=== PATIENT | male | born 1955 | race Caucasian/White ===

== ENCOUNTER 2017-08-08 20:05 | Observation (INO) ==
[2017-08-08] MEDS ORDERED: FLUARIX QUAD 2017-18 36MOS UP/PF 0.5 ML SYRINGE IM ONE (22:15)
[2017-08-08] MEDS ORDERED: Acetaminophen 325 MG TABLET PO PRN (23:35)
[2017-08-08] MEDS ORDERED: *HR* HYDROcodone/Acet 5/325 mg TABLET PO PRN (23:35)
[2017-08-08] MEDS ORDERED: Naloxone 0.4 MG/ML INJ IVP PRN (23:35)
[2017-08-08] MEDS ORDERED: Ondansetron 4 MG/2 ML VIAL IVP PRN (23:35)
--- NOTE | 2017-08-08 23:41 | Internal Med History&Physical ---
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 Reports quitting in October - Pt is currently no longer symptomatic. AOx3, no LOZADA, n/v, weakness, neurological signs. - Tolerating 100% O2 on non rebreather. - Repeat carboxyhemoglobin and VBG pending at 0100. Will deescalate to [place] when labs normalize. - Will keep NPO for risk of vomiting and aspiration while on mask. - ABG showing Respiratory alkalosis. - Will obtain head CT to r/o other etiologies of dyskinesia, dysarthria. (2) COPD (chronic obstructive pulmonary disease) Current visit: Yes Status: Chronic - Hx of COPD from cigarette smoking. Pt reports quitting in October but does admit to a few cigarettes last month. - Not likely in exacerbation but some wheezing heard on physical exam. - Will give Duonebs q4hr for wheezing. O2 as necessary for CO poisoning. Qualifiers: COPD type: emphysema Emphysema type: unspecified Qualified Code(s): J43.9 - Emphysema, unspecified (3) Hypertension Current visit: Yes Status: Chronic - Currently well controlled. - Will continue home meds once confirmed Qualifiers: Hypertension type: essential hypertension Qualified Code(s): I10 - Essential (primary) hypertension (4) Hyperlipidemia Current visit: Yes Status: Chronic - Stable. No CP Qualifiers: Hyperlipidemia type: unspecified Qualified Code(s): E78.5 - Hyperlipidemia , unspecified (5) DVT prophylaxis Current visit: Yes Status: Acute - Heparin 5000 units q12 Internal Medicine - H&P: HPI Chief complaint: dyskinesia, confusion Admitted From: Emergency Dept Plans for Post Hospital Care: Home History of present illness: Mr. Hubbard is a 62 year old male with past medical history of COPD presents to [facility] from [facility] emergency department with complaint of uncoordinated movements, inability to talk, confusion since approximately 3:30 PM this afternoon. Patient states that he was at work in a garage using a forklift when he began to experience gradual onset fatigue, confusion, dizziness and it got to the point where he could not complete a sentence. He did not express any concerns of shortness of breath, fevers, chills, pain during that time. He states he took multiple breaks outside however his condition did not improve with these. He denies any symptoms of nausea, vomiting, headache, numbness, tingling, focal weakness. In the [facility]'s department, his symptoms gradually improved with administration of 100% oxygen. Vital signs were noted to be stable. Labs were in for mild white blood cell count elevation, respiratory alkalosis without compensation, mildly elevated creatinine at 1.45, carboxyhemoglobin of 31. [facility] and they do not recommend hyperbaric oxygen treatment at this time due to his history of emphysema. He was transferred to [facility] for further management. Past Med Surg Social Fam HX - Past Medical History Medical history: atrial fibrillation, COPD, GERD, GI bleed, hyperlipidemia, hypertension, kidney stones Psychiatric history: no psych history - Past Surgical History Surgical History: appendectomy, orthopedic, other, splenectomy, other - Social History Smoking Status: Former smoker Smokeless Tobacco Status: No Alcohol use: none Drug use: none - Family History Mother Living Status: Father Living Status: Brother Living Status: Son Family Member Ethnicity: Non- Living Status: Hx Family Cardiac Disorders: No Hx Family Respiratory Disorders: Yes (Emphesema) Hx Family Cancer: No Hx Family GI Disorders: No Hx Family Endocrine Disorder: No Hx Family Neuromuscular Disorders: No Hx Family Neurologic Disorders: No Hx Family HEENT Disorders: No Hx Family Autoimmune Disorders: No Internal Medicine - H&P: Meds Albuterol Sulfate [Proair Respiclick] 90 mcg IH Q4H PRN 10/17/15 [History] Aspirin [Adult Low Dose Aspirin EC] 81 mg PO DAILY 10/17/15 [History] Cyanocobalamin (Vitamin B-12) [B-12] 1,000 mcg PO DAILY 10/17/15 [History] Losartan Potassium [Cozaar] 100 mg PO DAILY 10/17/15 [History] Multivitamin/Iron/Folic Acid [Cerovite Advanced Form Tab] 1 each PO DAILY [History] Omeprazole [PriLOSEC] 20 mg PO DAILY 10/17/15 [History] Tiotropium [Spiriva] 18 mcg IH 0700 10/17/15 [History] Albuterol Neb [Proventil Neb] 2.5 mg IH Q4HR PRN 10/20/15 [History] Budesonide/Formoterol 160/4.5 [Symbicort 160/4.5] 2 puff IH BIDR inhaler [Rx] Metoprolol [Lopressor] 25 mg PO DAILY 11/30/15 [History] Roflumilast [Daliresp] 500 mcg PO DAILY 11/30/15 [History] 3 Allergy/AdvReac Type Severity Reaction Status Date / Time No Known Allergies Allergy Verified 10/17/15 12:56 All Systems PM: A 10-system review of systems was performed and is negative for pertinent findings except as documented above in the HPI. - Constitutional Constitutional: fatigue, lethargy, weakness, no chills, no excessive sweating, no fever(s), no malaise - EENT Eyes: no change in vision - Cardiovascular Cardiovascular ROS IM: lightheadedness, no chest pain, no dyspnea, no dyspnea on exertion, no edema, no orthopnea - Respiratory Respiratory: no cough, no dyspnea, no dyspnea on exertion - Gastrointestinal Gastrointestinal: no abdominal pain, no constipation, no diarrhea, no nausea, no vomiting - Musculoskeletal Musculoskeletal ROS IM: muscle weakness, no numbness, no tingling - Neurological Neurological ROS: abnormal gait, abnormal speech, dizziness, no headache(s), no numbness, no tingling, no weakness - Constitutional Vitals: Temp Pulse Resp BP Pulse Ox 98.8 F 86 24 160/86 97 08/08/17 21:57 08/08/17 21:57 08/08/17 21:57 08/08/17 21:57 08/08/17 21:57 Exam: Gen.: Vitals noted. No acute distress. AAOx3. Resting comfortably speaking in full sentences on non rebreather. HEENT: PERRL, Normocephalic, atraumatic, MMM Cardiac: RRR, no murmur, +S1/S2 Pulmonary: Mild wheezing in middle lobes. equal chest expansion Abdomen: soft, moderate tenderness to palpation in epigastric region, BS noted, no guarding MSK: ROM intact, no joint swelling noted Extremities: no BLE edema, nontender calf, no cyanosis or clubbing Neuro: A&Ox3, moves all extremities, no focal deficits Psych: Appropriate mood and behavior <Chad Reveles - Last Filed: 08/09/17 04:11> Date of Encounter: 08/09/17 Internal Medicine - H&P: HPI History of present illness: Mr. Hubbard is a 62 year old male All Systems PM: A 10-system review of systems was performed and is negative for pertinent findings except as documented above in the HPI. - Constitutional Vitals: Temp Pulse Resp BP Pulse Ox 98.8 F 86 24 160/86 97 08/08/17 21:57 08/08/17 21:57 08/08/17 21:57 08/08/17 21:57 08/08/17 21:57 Internal Med - H&P Results - ABG Interpretation ABG results: 08/09/17 01:37 VBG pH 7.37 VBG pCO2 54 H VBG pO2 142 H VBG HCO3 31 H - Attending Attestation I have seen and examined the patient independently. I have discussed with resident physician regarding the management plan. Agree with the documentation. Pt transfered from [place] ER for CO intoxicity. He has neural symptoms and hx of CO exposure. No LOS. Carboxylhemoglobin high to 35. Place pt on 100% O2, closely monitor VBG and Carboxylhemoglobin level. Pt is stable now, awake, alert , has no significant complaints.
[2017-08-09] MEDS ORDERED: Ipratropium/Albuterol Neb 3 ML IH PRN (00:13)
[2017-08-09 01:15] LABS: Carboxyhemoglobin 3.6 % (0-5)
[2017-08-09 01:40] LABS: VBG HCO3 31 mEq/L (21-27); VBG PCO2 54 mmHg (41-51); VBG PH 7.37 pH Units (7.32-7.42); VBG PO2 142 mmHg (25-50)
[2017-08-09] MEDS: Ipratropium/Albuterol Neb 3 ML IH SCH ×4 (03:40→21:44)
[2017-08-09 04:13] LABS: Carboxyhemoglobin 2.2 % (0-5)
[2017-08-09 04:17] LABS: Basophils # 0.1 K/mcL (0.0-0.2); Basophils % 0.9 %; Eosinophils # 0.4 K/mcL (0.0-0.6); Eosinophils % 3.6 %; Hemoglobin 14.5 g/dL (12.9-16.9); Immature Granulocytes % 0.3 % (0-4); Lymphocytes # 2.9 K/mcL (0.6-4.6); Lymphocytes % 27.4 %; Mean Corpuscular HGB Conc 33.7 g/dL (31.6-35.5); Mean Corpuscular Hemoglobin 30.2 pg (28.0-33.3); Mean Corpuscular Volume 89.6 fL (83.0-100.0); Mean Platelet Volume 9.4 fL (9.4-12.4); Monocytes % 9.8 %; Neutrophils # 6.1 K/mcL (1.6-8.9); Platelet Count 295 K/mcL (140-400); Red Cell Distribution Width 12.9 % (11.5-14.5)
[2017-08-09 04:19] LABS: VBG HCO3 29 mEq/L (21-27); VBG PCO2 50 mmHg (41-51); VBG PH 7.38 pH Units (7.32-7.42); VBG PO2 133 mmHg (25-50)
[2017-08-09 04:24] LABS: BUN/Creatinine Ratio 18 (6-26); Blood Urea Nitrogen 18 mg/dL (8-26); Calcium 9.2 mg/dL (8.6-10.8); Carbon Dioxide 27 mEq/L (19-29); Chloride 105 mEq/L (98-109); Glucose 119 mg/dL (70-99); Osmolality,Calculated 293 (280-300); Sodium 140 mEq/L (136-145); eGFR For African Americans > 60 (> 60); eGFR For Non-African Americans > 60 (> 60)
[2017-08-09] MEDS: *HR* Heparin 5,000 UNIT/ML VIAL SQ SCH ×2 (06:13→16:58)
--- NOTE | 2017-08-09 10:13 | Internal Med Progress Note ---
Date of Encounter: 08/09/17 Time of Encounter: 10:11 - Assessment and plan (1) Acute respiratory failure Status: Acute Assessment and plan: Improving. Secondary to possible carbon monoxide poisoning. Currently saturating well on nasal cannula. Wean down FiO2 as tolerated. Qualifiers: Respiratory failure complication: hypoxia Qualified Code(s): J96.01 - Acute respiratory failure with hypoxia (2) Carbon monoxide exposure Status: Acute Assessment and plan: Improving. Carboxyhemoglobin level at the time of admission noted to be 31.3, currently improved to 2.2. Continue supplemental oxygen as needed and supportive care. No neurologic deficits at this time. CT head showed no acute stroke. (3) Hypertension Status: Chronic Assessment and plan: Blood pressure noted to be well controlled. Resume home medications. Qualifiers: Hypertension type: essential hypertension Qualified Code(s): I10 - Essential (primary) hypertension (4) Hyperlipidemia Status: Chronic Qualifiers: Hyperlipidemia type: unspecified Qualified Code(s): E78.5 - Hyperlipidemia , unspecified (5) COPD (chronic obstructive pulmonary disease) Status: Chronic Assessment and plan: Not in acute exacerbation. Continue when necessary bronchodilators, steroid inhalers. Supplemental oxygen. Qualifiers: COPD type: emphysema Emphysema type: unspecified Qualified Code(s): J43.9 - Emphysema, unspecified - Subjective Interval history: Feels better; improved confusion, imbalance; no weakness, paresthesias, dysphagia; no dyspnea, chest pain; tolerates diet; - Constitutional Vitals: Temp Pulse Resp BP Pulse Ox 98.4 F 88 16 138/90 96 08/09/17 07:10 08/09/17 07:10 08/09/17 07:10 08/09/17 07:10 08/09/17 07:10 General appearance: Present: A&O X 3, answers questions appropriately - Respiratory Respiratory exam: Present: decreased breath sounds (slightly decreased air entry ), CTAB, wheezes (minimal end-expiratory wheezing at right base). Absent: accessory muscle use, rales, rhonchi - Cardiovascular Cardiovascular exam: Present: RRR, +S1, +S2. Absent: diastolic murmur, gallop, rubs, systolic murmur - GI/Abdominal GI/Abdominal exam: Present: normal bowel sounds, soft, no peritoneal signs. Absent: distended, tenderness - Extremities Exam Extremities exam: Present: full ROM, warm, radial pulses palpable and symmetrical. Absent: calf tenderness, cyanotic, pedal edema - Neurological Exam Neurological exam: Present: CN II-XII intact, oriented X3, no focal deficits. Absent: pronater drift, facial droop, speech deficit Internal Medicine: Result - Labs CBC & Chem 7: 08/10/17 05:00 08/10/17 05:00 Labs: Short CBC 08/09/17 Range/Units 04:04 WBC 10.5 (4.3-11.1) K/mcL Hgb 14.5 (12.9-16.9) g/dL Hct 43.0 (37.5-50.1) % Plt Count 295 (140-400) K/mcL Neutrophils # 6.1 (1.6-8.9) K/mcL BMP 08/09/17 04:04 Sodium 140 Potassium 4.0 Chloride 105 Carbon Dioxide 27 BUN 18 Creatinine 1.01 Glucose 119 H Calcium 9.2 - Impressions Impressions Head CT 08/09/17 00:23 IMPRESSION: Stable appearing CT scan of the head without acute intracranial abnormality. Mild frontotemporal cerebral volume loss as seen in 2014 without significant progression. Correlate with any symptoms or signs of dementia. D/ / Zaire Argueta MD / Zaire Argueta MD Interpreting Provider: Zaire Argueta MD Consult Discharge Plan - Plan Instructions: Acute Respiratory Distress Syndrome (DC), Chronic Obstructive Pulmonary Disease (DC), Chronic Hypertension (DC) Referrals: Hilario Barry MD [Primary Care Provider] - 08/14/17 2:30 pm
[2017-08-09] MEDS: Budesonide/Formoterol 160/4.5 MDI IH SCH ×2 (10:30→21:45)
[2017-08-09] MEDS: Aspirin Enteric Coated 81 MG Tablet PO SCH (12:09)
[2017-08-10 05:31] LABS: Basophils # 0.1 K/mcL (0.0-0.2); Basophils % 0.9 %; Eosinophils # 0.4 K/mcL (0.0-0.6); Eosinophils % 3.8 %; Hematocrit 43.1 % (37.5-50.1); Hemoglobin 14.3 g/dL (12.9-16.9); Immature Granulocytes % 0.3 % (0-4); Lymphocytes # 2.6 K/mcL (0.6-4.6); Lymphocytes % 25.6 %; Mean Corpuscular HGB Conc 33.2 g/dL (31.6-35.5); Mean Corpuscular Hemoglobin 29.7 pg (28.0-33.3); Mean Corpuscular Volume 89.6 fL (83.0-100.0); Mean Platelet Volume 9.4 fL (9.4-12.4); Monocytes # 0.9 K/mcL (0.0-1.3); Monocytes % 9.1 %; Neutrophils # 6.2 K/mcL (1.6-8.9); Platelet Count 310 K/mcL (140-400); Red Blood Count 4.81 M/mcL (4.19-5.50); Red Cell Distribution Width 12.7 % (11.5-14.5); Segmented Neutrophils % 60.3 %
[2017-08-10 05:43] LABS: BUN/Creatinine Ratio 21 (6-26); Blood Urea Nitrogen 19 mg/dL (8-26); Calcium 8.9 mg/dL (8.6-10.8); Carbon Dioxide 26 mEq/L (19-29); Chloride 106 mEq/L (98-109); Glucose 120 mg/dL (70-99); Osmolality,Calculated 293 (280-300); Potassium 4.1 mEq/L (3.5-4.5); Sodium 140 mEq/L (136-145); eGFR For African Americans > 60 (> 60); eGFR For Non-African Americans > 60 (> 60)
[2017-08-10] MEDS: Ipratropium/Albuterol Neb 3 ML IH SCH ×2 (05:44→09:55)
[2017-08-10] MEDS: *HR* Heparin 5,000 UNIT/ML VIAL SQ SCH (06:01)
[2017-08-10] MEDS ORDERED: (Roflumilast [Daliresp] 500 MCG) PO SCH (09:00)
[2017-08-10] MEDS ORDERED: Multivit/Ca/Min/Fe/FA 1 TAB TABLET PO SCH (09:00)
[2017-08-10] MEDS ORDERED: Cyanocobalamin (B-12) 1,000 MCG TABLET PO SCH (09:00)
[2017-08-10] MEDS: Budesonide/Formoterol 160/4.5 MDI IH SCH (09:54)
[2017-08-10] MEDS: Aspirin Enteric Coated 81 MG Tablet PO SCH (10:07)
[2017-08-10 10:13] VITALS: BP 131/82
--- NOTE | 2017-08-10 11:54 | Discharge Summary ---
Date of Encounter: 08/10/17 Time of Encounter: 11:30 - Discharge Diagnosis (1) Carbon monoxide exposure Priority: Primary Status: Acute (2) Acute respiratory failure Priority: Primary Status: Acute Qualifiers: Respiratory failure complication: hypoxia Qualified Code(s): J96.01 - Acute respiratory failure with hypoxia (3) Hypertension Priority: Secondary Status: Chronic Qualifiers: Hypertension type: essential hypertension Qualified Code(s): I10 - Essential (primary) hypertension (4) Hyperlipidemia Priority: Secondary Status: Chronic Qualifiers: Hyperlipidemia type: unspecified Qualified Code(s): E78.5 - Hyperlipidemia , unspecified (5) COPD (chronic obstructive pulmonary disease) Priority: Secondary Status: Chronic Qualifiers: COPD type: emphysema Emphysema type: unspecified Qualified Code(s): J43.9 - Emphysema, unspecified - Discharge Medications Home Medications: Albuterol Sulfate [Proair Respiclick] 90 mcg IH Q4H PRN 10/17/15 [History] Aspirin [Adult Low Dose Aspirin EC] 81 mg PO DAILY 10/17/15 [History] Cyanocobalamin (Vitamin B-12) [B-12] 1,000 mcg PO DAILY 10/17/15 [History] Losartan Potassium [Cozaar] 100 mg PO DAILY 10/17/15 [History] Multivitamin/Iron/Folic Acid [Cerovite Advanced Form Tab] 1 each PO DAILY [History] Omeprazole [PriLOSEC] 20 mg PO DAILY 10/17/15 [History] Tiotropium [Spiriva] 18 mcg IH 0700 10/17/15 [History] Albuterol Neb [Proventil Neb] 2.5 mg IH Q4HR PRN 10/20/15 [History] Budesonide/Formoterol 160/4.5 [Symbicort 160/4.5] 2 puff IH BIDR inhaler [Rx] Metoprolol [Lopressor] 25 mg PO DAILY 11/30/15 [History] Roflumilast [Daliresp] 500 mcg PO DAILY 11/30/15 [History] Allergies/Adverse Reactions: 3 Allergy/AdvReac Type Severity Reaction Status Date / Time No Known Allergies Allergy Verified 08/09/17 08:42 Procedures/tests Complete & Pending: Procedures Performed prior 72 hours Category Date Time Status CT head/brain wo con [CT] Routine Cat Scan 11/17/17 00:23 Completed Date of admission: 08/08/17 21:29 Primary care physician: Hilario Barry MD Discharging clinician: Brook Miguel Anticipated date of discharge: 08/10/17 - Patient Status Disposition: Home, Self-Care Condition: Good Functional capacity at discharge: independent ambulation Overall status at discharge: patient is back to baseline - Discharge Instructions Instructions: Acute Respiratory Distress Syndrome (DC), Chronic Obstructive Pulmonary Disease (DC), Chronic Hypertension (DC) Follow Up With: Hilario Barry MD [Primary Care Provider] - 08/14/17 2:30 pm - Diet and Activity Activity: resume usual activities as tolerated Diet: low fat, low cholesterol, low salt diet Hospital course: Mr. 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 Patient was noted to have an elevated carboxyhemoglobin level of 31. He was started on supplemental oxygen initially via nonrebreather mask, which was later switched to nasal cannula. Basic labs showed no other acute abnormality. Chest x-ray showed no focal infiltrates. CT head showed no acute bleed/infarct. Patient remained hemodynamically stable and his carboxyhemoglobin level improved to 2 during this hospitalization. Patient is doing very well today, saturating well on room air and tolerating oral diet. He is medically stable for discharge with outpatient follow-up. - Time Spent with Patient Total time spent providing and/or coordinating discharge services: Greater than 30 minutes (40 min) - Constitutional Vitals: Temp Pulse Resp BP Pulse Ox 98.4 F 92 16 131/82 97 08/10/17 04:00 08/10/17 10:12 08/10/17 09:57 08/10/17 10:12 08/10/17 09:57 General appearance: Present: A&O X 3, answers questions appropriately - Cardiovascular Cardiovascular exam: Present: RRR, +S1, +S2. Absent: diastolic murmur, gallop, rubs, systolic murmur
== END 2017-08-10 13:56 | disposition home or self-care (01) ==
LOC: 2NENU → SUATTDRO 21:29
PROVIDERS: ADMIT Internal Medicine; ATTEND Internal Medicine